=== PATIENT | female | born 1985 ===

== ENCOUNTER → 2024-01-10 08:29 | Outpatient (REF) | payer OTHER, SELFPAY | LOC: HWRAD 08:29 | PROVIDERS: ATTENDING PHYSICIAN Physician Assistant; FAMILY PHYSICIAN Family Medicine | DX: M25.519 Pain in unspecified shoulder (principal); M25.539 Pain in unspecified wrist; M25.559 Pain in unspecified hip; M25.569 Pain in unspecified knee; M54.50 Low back pain, unspecified | CPT/HCPCS: 72114; 72202; 73030; 73110; 73523; 73560; 73565 ==